=== PATIENT | male | born 1940 | race Caucasian/White ===

== ENCOUNTER 2018-04-06 07:40 | Day surgery (SDC) | payer BC ==
[~2018-04-06] VITALS: Ht 175.3 cm; Wt 70.0 kg
[~2018-04-06 07:40] MED LIST: AVODART0.5 MG PO; COLACE10 MG/ML PO; INDERAL20 MG PO; PRAVACHOL40 MG PO; PRAVASTATIN SOD40 MG PO; PRINIVIL5 MG PO; SENNA8.6 M1 PO; TRAZODONE HCL50 MG PO; VITAMIN D-32000 UNI1 PO; XARELTO20 MG PO
[2018-04-06 08:26] VITALS: BP 128/83
[2018-04-06 12:25] VITALS: BP 99/67
[2018-04-06 12:51] VITALS: BP 110/73
== END 2018-04-06 13:00 | disposition home or self-care (01) ==
LOC: SDC 07:40
PROC: 0JB70ZZ Excision of Back Subcutaneous Tissue and Fascia, Open Approach (ICD-10-PCS; principal; 2018-04-06)
DX: L72.0 Epidermal cyst (principal); M43.16 Spondylolisthesis, lumbar region; Z79.01 Long term (current) use of anticoagulants
CPT/HCPCS: 88304; J0131; J0690; J1170; J2250; S0020